=== PATIENT | female | born 1965 | race Caucasian/White ===

== ENCOUNTER 2018-03-05 07:05 | Day surgery (SDC) | payer OTHER ==
[~2018-03-05 07:05] MED LIST: GABAPENTIN400 MG PO; LIPITOR40 MG PO; RESTORIL PO; SYNTHROID137 MCG PO; [UNRECOGNIZED DRUG - OTHER] PO
== END 2018-03-05 17:50 | disposition home or self-care (01) ==
LOC: CIR.AMB 07:05
DX: S66.19 Other injury of flexor muscle, fascia and tendon of other and unspecified finger at wrist and hand level (principal)